=== PATIENT | male | born 1970 | race Caucasian/White ===

== ENCOUNTER 2022-04-20 09:43 | Outpatient (CLI) | payer BC | END 2022-04-20 09:44 | disposition home or self-care (01) | LOC: SCSMRI 09:43 | PROVIDERS: ATTEND Orthopaedic Surgery | DX: M24.811 Other specific joint derangements of right shoulder, not elsewhere classified (principal); S43.431A Superior glenoid labrum lesion of right shoulder, initial encounter; M75.111 Incomplete rotator cuff tear or rupture of right shoulder, not specified as traumatic; M77.8 Other enthesopathies, not elsewhere classified | CPT/HCPCS: 70210 ==